=== PATIENT | male | born 1965 | race Caucasian/White ===

== ENCOUNTER 2021-10-10 15:40 | Emergency (ER) | payer OTHER ==
[2021-10-10 15:44] VITALS: TEMP 97.9
--- NOTE | 2021-10-10 16:03 | ED ---
Chest Pain HPI - General Chief Complaint: Chest Pain Stated Complaint: Chest Pain Time Seen by Provider: 10/10/21 15:47 Source: patient, RN notes reviewed Mode of arrival: ambulatory Limitations: no limitations - History of Present Illness Initial Comments: 48-year-old male with a history of hypertension who also had COVID-19 2 weeks ago most with GI symptoms who is here today with complaints of left-sided chest pain for about one week somewhat stabbing somewhat pokey goes from his left sided chest to shoulder scapula times no associated shortness breath fevers chills nausea vomiting sweats or other symptoms. He has no personal history of heart or overt lung disease. MD Complaint: chest pain - Related Data Home Medications Medication Instructions Recorded Confirmed Levothyroxine Sodium [Synthroid] 137 mcg PO DAILY 10/10/21 10/10/21 Previous Rx's Medication Instructions Recorded Ibuprofen 800 mg PO Q6HR PRN #20 tablet 10/10/21 Orphenadrine [Norflex] 100 mg PO Q12H #7 tab 10/10/21 Allergies Allergy/AdvReac Type Severity Reaction Status Date / Time No Known Allergies Allergy Verified 10/10/21 17:30 Review of Systems ROS Statement: Those systems with pertinent positive or pertinent negative responses have been documented in the HPI. ROS Other: All systems not noted in ROS Statement are negative. EKG Findings - EKG Results: EKG: interpreted by JELANI CARR, sinus rhythm, normal axis, normal QRS, normal ST/T, no acute changes (Normal sinus rhythm rate of 86. Interval 157 QRS duration 8070 QT since QTC 345/389) Past Medical History Past Medical History: No Reported History History of Any Multi-Drug Resistant Organisms: None Reported Past Surgical History: No Surgical Hx Reported Past Psychological History: No Psychological Hx Reported Smoking Status: Never smoker Past Alcohol Use History: None Reported Past Drug Use History: None Reported General Exam - General Exam Comments Initial Comments: This is a well-developed well-nourished awake alert oriented 3 male Limitations: no limitations General appearance: alert, anxious Head exam: Present: atraumatic, normocephalic, normal inspection Eye exam: Present: normal appearance, PERRL, EOMI. Absent: scleral icterus, conjunctival injection, periorbital swelling ENT exam: Present: normal exam, mucous membranes moist Neck exam: Present: normal inspection. Absent: tenderness, meningismus, lymphadenopathy Respiratory exam: Present: normal lung sounds bilaterally. Absent: respiratory distress, wheezes, rales, rhonchi, stridor Cardiovascular Exam: Present: regular rate, normal rhythm, normal heart sounds. Absent: systolic murmur, diastolic murmur, rubs, gallop, clicks GI/Abdominal exam: Present: soft, normal bowel sounds. Absent: distended, tenderness, guarding, rebound, rigid Extremities exam: Present: normal inspection, full ROM, normal capillary refill. Absent: tenderness, pedal edema, joint swelling, calf tenderness Back exam: Present: normal inspection Neurological exam: Present: alert, oriented X3, CN II-XII intact Psychiatric exam: Present: normal affect, normal mood Skin exam: Present: warm, dry, intact, normal color. Absent: rash Course Vital Signs 10/10/21 10/10/21 10/10/21 15:42 16:12 17:08 Temperature 97.9 F Pulse Rate 91 80 Pulse Rate [ 85 Electrical Inspector ] Respiratory 18 16 Rate Blood Pressure 160/97 135/79 O2 Sat by Pulse 99 97 Oximetry Chest Pain MDM - MDM Imaging reviewed no acute findings. He had a long discussion with patient's the patient's presentation appears be musculoskeletal chest pain we placed on NSAIDs and muscle relaxer. 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 He also has some shoveling recently Disposition Clinical Impression: Chest wall syndrome, Myofascial pain Disposition: HOME SELF-CARE Condition: Good Instructions (If sedation given, give patient instructions): Chest Wall Pain (ED), Musculoskeletal Pain (ED) Prescriptions: Ibuprofen 800 mg PO Q6HR PRN #20 tablet PRN Reason: Pain Orphenadrine [Norflex] 100 mg PO Q12H #7 tab Is patient prescribed a controlled substance at d/c from ED?: No Referrals: Eduar Peralta DO [Primary Care Provider] - 1-2 days
[2021-10-10 16:17] LABS: Basophils % (A) 0 %; Eosinophils # (A) 0.2 k/uL (0-0.7); Eosinophils % (A) 3 %; HCT 48.8 % (39.0-53.0); HGB 17.1 gm/dL (13.0-17.5); Lymphocytes # (A) 1.2 k/uL (1.0-4.8); Lymphocytes % (A) 20 %; MCH 32.4 pg (25.0-35.0); MCHC 35.1 g/dL (31.0-37.0); MCV 92.5 fL (80.0-100.0); Mean Platelet Volume 8.6; Monocytes # (A) 0.4 k/uL (0-1.0); Monocytes % (A) 6 %; Neutrophils # (A) 4.3 k/uL (1.3-7.7); Neutrophils % (A) 70 %; Platelet Count 156 k/uL (150-450); RBC 5.28 m/uL (4.30-5.90); RDW 12.4 % (11.5-15.5); WBC 6.2 k/uL (3.8-10.6)
[2021-10-10 16:29] LABS: Albumin 4.7 g/dL (3.5-5.0); Calcium 9.7 mg/dL (8.4-10.2); Magnesium 1.9 mg/dL (1.6-2.3); Total Bilirubin 0.9 mg/dL (0.2-1.3); Total Protein 7.4 g/dL (6.3-8.2)
--- NOTE | 2021-10-10 16:29 | XR ---
EXAMINATION TYPE: XR chest 2V DATE OF EXAM: 10/10/2021 COMPARISON: NONE HISTORY: Chest pain TECHNIQUE: Frontal and lateral views of the chest are obtained on 3 images. FINDINGS: There is no focal air space opacity, pleural effusion, or pneumothorax seen. The cardiac silhouette size is within normal limits. There are overlying leads. The osseous structures are inta ct. IMPRESSION: No acute cardiopulmonary process.
[2021-10-10 16:35] LABS: INR 0.9 (<1.2); Partial Thromboplastin Time 22.5 sec (22.0-30.0); Prothrombin Time 10.1 sec (9.0-12.0)
[2021-10-10 17:09] VITALS: RESP 16
[2021-10-10] MEDS ORDERED: KETOROLAC 15 MG/ML 1 ML VIAL IVP STA (17:14)
[2021-10-10 18:26] VITALS: BP 136/70; PULSE 82
== END 2021-10-10 18:26 | disposition home or self-care (01) ==
LOC: EC 15:40
DX: R07.1 Chest pain on breathing (principal); M79.18 Myalgia, other site
CPT/HCPCS: 36415; 93005; 85379; 83880; 80053; 83690; 83735; 84484; 85025; 85610; 85730; 71046; 99285; 96374; J1885